=== PATIENT | female | born 1965 | race Caucasian/White ===

== ENCOUNTER → 2020-04-22 | Outpatient (CLI) | payer BC ==
[2020-04-22 10:22] LABS: BASO # 0.1 x10^3/uL (0.0-0.2); BASO % 2 % (0-3); EOS # 0.1 x10^3/uL (0.0-0.7); EOS % 2 % (0-3); HEMATOCRIT 38.1 % (36.0-47.0); HEMOGLOBIN 12.4 g/dL (12.0-15.5); LYMPH # 0.9 x10^3/uL (1.0-4.8); LYMPH % 21 % (24-48); MEAN CORPUSCULAR HEMOGLOBIN 30 pg (25-35); MEAN CORPUSCULAR HGB CONC 33 g/dL (31-37); MEAN CORPUSCULAR VOLUME 92 fL (79-100); MONO # 0.3 x10^3/uL (0.0-1.1); MONO % 7 % (0-9); NEUT # 2.7 x10^3uL (1.8-7.7); NEUT % 68 % (31-73); PLATELET COUNT 272 x10^3/uL (140-400); RED BLOOD COUNT 4.15 x10^6/uL (3.50-5.40); RED CELL DISTRIBUTION WIDTH 13.2 % (11.5-14.5)
[2020-04-22 10:29] LABS: ALBUMIN 3.5 g/dL (3.4-5.0); ALBUMIN/GLOBULIN RATIO 1.2 (1.0-1.7); CALCIUM 8.4 mg/dL (8.5-10.1); CREATININE 0.7 mg/dL (0.6-1.0); GFR 86.6; MAGNESIUM 2.3 mg/dL (1.8-2.4); TOTAL BILIRUBIN 0.4 mg/dL (0.2-1.0); TOTAL PROTEIN 6.4 g/dL (6.4-8.2)
[2020-04-22 10:46] LABS: POTASSIUM 2.8 mmol/L (3.5-5.1)
[2020-04-22 18:23] LABS: FREE T4 1.21 ng/dL (0.76-1.46); THYROID STIM HORMONE (TSH) 2.429 uIU/mL (0.358-3.740)
== END ==
LOC: LAB 09:12
PROVIDERS: ATTEND Family Medicine
DX: R63.4 Abnormal weight loss (principal); E03.9 Hypothyroidism, unspecified; Z98.84 Bariatric surgery status
CPT/HCPCS: 36415; 80053; 80061; 82306; 82607; 82728; 82746; 83735; 84439; 84443; 85025

== ENCOUNTER → 2020-05-16 | Outpatient (CLI) | payer BC ==
[~2020-05-16] MED LIST: AMOX1TAB61 PO
--- NOTE | 2020-05-16 09:09 | RAD ---
Right upper quadrant abdominal ultrasound History: Reason: ELEVATED LFTS Comparison: None. Technique: Transabdominal ultrasound images are obtained. Findings: Visualized pancreas is unremarkable. Liver is normal in echogenicity. Right hepatic lobe measures 14.3 cm. Portal flow is hepatopedal. Gallbladder is surgically absent. Common bile duct is dilated measuring 15 mm in diameter. The right kidney measures 12 cm in length. There is no hydronephrosis. The IVC is patent. IMPRESSION: The common bile duct is moderately dilated. Consider further evaluation with MRCP. Electronically signed by: Roe Khalil MD (05/16/2020 9:06 AM) [id number]
== END ==
LOC: US 07:54
PROVIDERS: ATTEND Family Medicine
DX: R94.5 Abnormal results of liver function studies (principal); Z90.49 Acquired absence of other specified parts of digestive tract
CPT/HCPCS: 76705

== ENCOUNTER 2020-05-19 01:07 | Emergency (ER) | payer BC ==
[~2020-05-19] VITALS: Ht 172.7 cm; Wt 58.6 kg
[2020-05-19 01:10] VITALS: BP 148/61
[2020-05-19] MEDS ORDERED: AMOX1TAB61 PO (01:34)
--- NOTE | 2020-05-19 01:34 | PHYS DOC ---
Adult General Chief Complaint Chief Complaint: ANIMAL BITE HPI HPI Patient is a 54-year-old female who presents to the emergency room after getting a small dog bite on her finger. She states that her dog and the dog that she is babysitting got to fight and she tried to break them. The dog bit her finger. She states initially it had some bleeding but this is now stopped. She states that the finger throbs. She states the dog's shots are up-to-date. She denies any other injuries. She states her tetanus is up-to-date. Review of Systems Review of Systems Complete ROS is negative unless otherwise documented in HPI Allergies Allergies Allergies Coded Allergies Type Severity Reaction Last Updated Verified ciprofloxacin Allergy Unknown 05/19/20 Yes Physical Exam Physical Exam General: Awake, alert, NAD. Well Nourished, well hydrated. Cooperative HEENT: Atraumatic, EOMI, PERRL, airway patent, moist oral mucosa Neck: Supple, trachea midline Respiratory: CTA bilaterally, normal effort, no wheezing/crackles CV: RRR, no murmur, cap refill <2 GI: Soft, nondistended, nontender, no masses MSK: Finger: Small puncture wounds to the dorsal side without bleeding or gaping. Skin: Warm, dry, intact Neuro: A&O x3, speech NL, sensory and motor grossly intact, no focal deficits Psych: Normal affect, normal mood, not suicidal or homicidal EKG EKG [] Radiology/Procedures Radiology/Procedures [] Heart Score Risk Factors: Risk Factors: DM, Current or recent (<one month) smoker, HTN, HLP, family history of CAD, obesity. Risk Scores: Risk Factors: DM, Current or recent (<one month) smoker, HTN, HLP, family history of CAD, obesity. Course & Med Decision Making Course & Med Decision Making Pertinent Labs and Imaging studies reviewed. (See chart for details) Patient is a 54-year-old female who presents to the emergency room with a small dog bite to her finger. Wound was thoroughly cleaned here in the emergency room. Patient states that the dog has had rabies vaccines and she does not need the rabies vaccine at this time. She was placed on antibiotics to prevent infection due to a dog bite. Patient's test results and vitals while in the ED were fully reviewed and discussed with the patient. Patient is stable and at this time does not need admission to the hospital. We have discussed strict return precautions and the importance of following up with their Primary Care Physician. Patient stated understanding and was given an opportunity to ask any questions. Patient is in agreement with plan. Mack Disclaimer Dragon Disclaimer This electronic medical record was generated, in whole or in part, using a voice recognition dictation system. Departure Departure: Impression: Primary Impression: Dog bite Disposition: 01 DC HOME SELF CARE/HOMELESS Condition: STABLE Referrals: MANASA KRAFT (PCP) Patient Instructions: Animal Bite Scripts Amoxicillin/Potassium Clav (AUGMENTIN [id number] TABLET) 1 Each Tablet 1 TAB PO BID for bite for 10 Days, #20 TAB 0 Refills Prov: DUONG QUICK MD 05/19/20 DUONG QUICK MD May 19, 2020 01:34
[2020-05-19] MEDS ORDERED: cefTRIAXone SODIUM 1 GM VIAL ONE (01:42)
[2020-05-19] MEDS ORDERED: cefTRIAXone IM 1 GM VIAL IM ONE (01:45)
== END 2020-05-19 02:14 | disposition home or self-care (01) ==
LOC: ER 01:07
DX: S61.231A Puncture wound without foreign body of left index finger without damage to nail, initial encounter (principal); Z88.1 Allergy status to other antibiotic agents; W54.0XXA Bitten by dog, initial encounter; Y93.89 Activity, other specified; Y92.89 Other specified places as the place of occurrence of the external cause; Y99.8 Other external cause status
CPT/HCPCS: 96372; 99283; J0696